=== PATIENT | male | born 1990 | race Caucasian/White ===

== ENCOUNTER 2016-12-09 22:23 | Emergency (ER) | payer OTHER ==
[~2016-12-09] VITALS: Ht 180.3 cm; Wt 77.1 kg
[2016-12-09] MEDS ORDERED: TETANUS,DIPTH,PERTUSS P/F (BOOSTRIX) 0.5 ML VIAL IM ONE (22:45)
[2016-12-09] MEDS ORDERED: methylPREDNISolone 125 MG (Solu-MEDROL) VIAL IM ONE (22:45)
[2016-12-09] MEDS ORDERED: CLINDAMYCIN 600 MG/4ML (CLEOCIN) VIAL IM ONE (22:45)
[2016-12-09] MEDS ORDERED: PRD10T PO (22:50)
[2016-12-09] MEDS ORDERED: CLIN300C11 PO (22:50)
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
[2016-12-09 23:17] VITALS: BP 146/84
== END 2016-12-09 23:17 | disposition home or self-care (01) ==
LOC: EDUNIT# 22:23 → ER 22:27
DX: L03.113 Cellulitis of right upper limb (principal); F17.210 Nicotine dependence, cigarettes, uncomplicated; Z23 Encounter for immunization
CPT/HCPCS: 90715; 99281

== ENCOUNTER 2017-01-26 20:15 | Emergency (ER) | payer OTHER ==
[~2017-01-26] VITALS: Ht 180.3 cm; Wt 79.8 kg
[~2017-01-26 20:15] MED LIST: CLIN300C11 PO; PRD10T PO
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
[2017-01-26] MEDS ORDERED: LEVO500T80 PO (21:48)
[2017-01-26 21:56] VITALS: BP 141/84
== END 2017-01-26 21:56 | disposition home or self-care (01) ==
LOC: EDUNIT# 20:15 → ER 20:17
DX: R51 Headache (principal)
CPT/HCPCS: 70450; 70486; 72125; 99282

== ENCOUNTER 2017-04-05 14:30 | Emergency (ER) | payer OTHER ==
[~2017-04-05] VITALS: Ht 180.3 cm; Wt 81.6 kg
[~2017-04-05 14:30] MED LIST changes: +LEVO500T80 PO
[2017-04-05] MEDS ORDERED: LIDOCAINE 2% 20 ML (XYLOCAINE) VIAL INJ ONE (14:45)
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
[2017-04-05 15:20] VITALS: BP 145/88
== END 2017-04-05 15:20 | disposition home or self-care (01) ==
LOC: EDUNIT# 14:30 → ER 14:34
DX: S81.811A Laceration without foreign body, right lower leg, initial encounter (principal); F17.210 Nicotine dependence, cigarettes, uncomplicated; Z87.828 Personal history of other (healed) physical injury and trauma; W26.0XXA Contact with knife, initial encounter; Y92.009 Unspecified place in unspecified non-institutional (private) residence as the place of occurrence of the external cause
CPT/HCPCS: 12001

== ENCOUNTER 2017-05-05 13:14 | Emergency (ER) | payer OTHER ==
[~2017-05-05] VITALS: Ht 180.3 cm; Wt 81.6 kg
--- NOTE | 2017-05-05 14:45 | ED EENT ---
History of Present Illness General Chief Complaint: Ear Problems Stated Complaint: R EAR PAIN Nursing Triage Note: C/O R EARACHE FOR 3 DAYS Source: patient Exam Limitations: no limitations History of Present Illness Time seen by provider: 14:43 Initial Comments The patient is a 27-year-old white male who apparently came to the emergency room because of ear pain. He told the nurse that it was his right ear which hurt. When I entered the room he was sleeping soundly and had to be shaken and spoken to to arouse. When I asked him why he was here he stated he was so tired. I re-joined with I thought you were here for ear pain. He countered" oh yeah my left" and fell back asleep Allergies and Home Medications Allergies Coded Allergies: amoxicillin (Unverified Allergy, Unknown, 05/26/15) Home Medications No Active Prescriptions or Reported Meds Review of Systems Constitutional: see HPI Past Ttzwjql-Grblhn-Glnnud Hx Patient Social History Alcohol Use: Denies Use Recreational Drug Use: No Smoking Status: Current Everyday Smoker Type Used: Cigarettes 2nd Hand Smoke Exposure: Yes Recent Foreign Travel: No Contact w/Someone Who Travel: No Recent Infectious Disease Expo: No Recent Hopitalizations: No Immunizations Up To Date Tetanus Booster (TDap): Unknown Seasonal Allergies Seasonal Allergies: No Surgeries History of Surgeries: No Respiratory History of Respiratory Disorde: No Cardiovascular History of Cardiac Disorders: No Neurological History of Neurological Disord: No Reproductive System Hx Reproductive Disorders: No Sexually Transmitted Disease: No Genitourinary History of Genitourinary Disor: No Gastrointestinal History of Gastrointestinal Di: No Musculoskeletal History of Musculoskeletal Dis: No Endocrine History of Endocrine Disorders: No HEENT History of HEENT Disorders: No Cancer History of Cancer: No Psychosocial History of Psychiatric Problem: No Integumentary History of Skin or Integumenta: No Blood Transfusions History of Blood Disorders: No Family Medical History Significant Family History: No Pertinent Family Hx Physical Exam Vital Signs Vital Sign - Last 12Hours 05/05/17 13:58 Temp 98.2 Pulse 83 Resp 18 B/P (MAP) 139/89 Pulse Ox 100 O2 Delivery Room Air General Appearance: other (deeply somnolent) Neck: full range of motion Cardiovascular: normal peripheral pulses, regular rate, rhythm, no edema, no gallop, no JVD, no murmur Respiratory: chest non-tender, lungs clear, normal breath sounds, no respiratory distress, no accessory muscle use Examination proved that this was the right ear. The right earlobe and the pre- canal portion of the ear were swollen and quite tender. Laceration Repair : Suture Size: 4-0, 5-0 Progress/Results/Core Measures Results/Orders Lab Results Laboratory Tests Test 05/05/17 15:10 05/05/17 15:15 Range/Units White Blood Count 12.5 H 4.3-11.0 10^3/uL Red Blood Count 4.51 4.35-5.85 10^6/uL Hemoglobin 14.0 13.3-17.7 G/DL Hematocrit 42 40-54 % Mean Corpuscular Volume 93 80-99 FL Mean Corpuscular Hemoglobin 31 25-34 PG Mean Corpuscular Hemoglobin Concent 33 32-36 G/DL Red Cell Distribution Width 12.9 10.0-14.5 % Platelet Count 220 130-400 10^3/uL Mean Platelet Volume 8.9 7.4-10.4 FL Neutrophils (%) (Auto) 74 42-75 % Lymphocytes (%) (Auto) 16 12-44 % Monocytes (%) (Auto) 9 0-12 % Eosinophils (%) (Auto) 1 0-10 % Basophils (%) (Auto) 0 0-10 % Neutrophils # (Auto) 9.2 H 1.8-7.8 X 10^3 Lymphocytes # (Auto) 2.0 1.0-4.0 X 10^3 Monocytes # (Auto) 1.2 H 0.0-1.0 X 10^3 Eosinophils # (Auto) 0.1 0.0-0.3 10^3/uL Basophils # (Auto) 0.0 0.0-0.1 10^3/uL Urine Opiates Screen NEGATIVE NEGATIVE Urine Oxycodone Screen NEGATIVE NEGATIVE Urine Methadone Screen NEGATIVE NEGATIVE Urine Propoxyphene Screen NEGATIVE NEGATIVE Urine Barbiturates Screen NEGATIVE NEGATIVE Ur Tricyclic Antidepressants Screen NEGATIVE NEGATIVE Urine Phencyclidine Screen NEGATIVE NEGATIVE Urine Amphetamines Screen POSITIVE H NEGATIVE Urine Methamphetamines Screen NEGATIVE NEGATIVE Urine Benzodiazepines Screen NEGATIVE NEGATIVE Urine Cocaine Screen NEGATIVE NEGATIVE Urine Cannabinoids Screen POSITIVE H NEGATIVE My Orders Orders - HAMLET GUAJARDO MD Cbc With Automated Diff (05/05/17 14:57) Drug Screen Stat (Urine) (05/05/17 14:57) Vital Signs/I&O Vital Sign - Last 12Hours 05/05/17 13:58 Temp 98.2 Pulse 83 Resp 18 B/P (MAP) 139/89 Pulse Ox 100 O2 Delivery Room Air Blood Pressure Mean: 106 Departure Impression Impression: Primary Impression: inflamed inclusion cyst right earlobe Disposition: HOME, SELF-CARE Condition: Stable/Unchanged Departure-Patient Inst. Referrals: ERYN HERNANDEZ MD (PCP/Family) Primary Care Physician Add. Discharge Instructions: All discharge instructions reviewed with patient and/or family. Voiced understanding It appears you have an inflamed cyst in your right earlobe. This needs to be removed surgically. I would suggest Dr. Mascorro who is our ear nose and throat surgeon. Call his office [phone] for an appointment Scripts No Active Prescriptions or Reported Meds HAMLET GUAJARDO MD May 05, 2017 14:45
[2017-05-05 14:46] VITALS: BP 139/89
[2017-05-05 15:24] LABS: BASOPHILS % (AUTO) 0 % (0-10); EOSINOPHILS # (AUTO) 0.1 10^3/uL (0.0-0.3); EOSINOPHILS % (AUTO) 1 % (0-10); LYMPHOCYTES % (AUTO) 16 % (12-44); MEAN CORPUSCULAR HEMOGLOBIN 31 PG (25-34); MEAN CORPUSCULAR HGB CONC 33 G/DL (32-36); MEAN CORPUSCULAR VOLUME 93 FL (80-99); MEAN PLATELET VOLUME 8.9 FL (7.4-10.4); MONOCYTES # (AUTO) 1.2 X 10^3 (0.0-1.0); MONOCYTES % (AUTO) 9 % (0-12); NEUTROPHILS # (AUTO) 9.2 X 10^3 (1.8-7.8); NEUTROPHILS % (AUTO) 74 % (42-75); PLATELET COUNT 220 10^3/uL (130-400); RED BLOOD COUNT 4.51 10^6/uL (4.35-5.85); RED CELL DISTRIBUTION WIDTH 12.9 % (10.0-14.5); WHITE BLOOD COUNT 12.5 10^3/uL (4.3-11.0)
== END 2017-05-05 14:46 | disposition home or self-care (01) ==
LOC: EDUNIT# 13:14 → ER 13:16
DX: L72.0 Epidermal cyst (principal); F17.210 Nicotine dependence, cigarettes, uncomplicated
CPT/HCPCS: 36415; 80306; 85025; 99282